=== PATIENT | male | born 1985 | race Caucasian/White ===

== ENCOUNTER 2018-12-09 19:34 | Emergency (ER) | payer SELFPAY ==
--- NOTE | 2018-12-09 20:11 | RAD ---
LEFT ELBOW TWO VIEW: 12/09/18 HISTORY: Deformity. COMPARISON: None. FINDINGS: Limited evaluation of the elbow does appear to be intact. There is a spiral type fracture of the dist al humerus. IMPRESSION: Intact limited evaluation of the elbow with spiral type fracture of the distal humeral diaphysis. POS: HOME
--- NOTE | 2018-12-09 20:13 | RAD ---
LEFT HUMERUS TWO VIEW 12/09/18 HISTORY: Deformity. COMPARISON: None. FINDINGS: There is a spiral fracture of the distal humeral diaphysis with mild apex posterolateral angulation. IMPRESSION: Spiral fracture of the distal humerus. POS: HOME
[2018-12-09] MEDS ORDERED: traMADol HCl 50 MG TAB ONE (22:17)
== END 2018-12-09 23:09 | disposition home or self-care (01) ==
LOC: ERS 19:34
DX: S49.102A Unspecified physeal fracture of lower end of humerus, left arm, initial encounter for closed fracture (principal); F31.9 Bipolar disorder, unspecified; Z87.891 Personal history of nicotine dependence; X50.1XXA Overexertion from prolonged static or awkward postures, initial encounter
CPT/HCPCS: 29105